=== PATIENT | male | born 1955 | race Caucasian/White ===

== ENCOUNTER 2017-01-14 10:22 | Outpatient (CLI) | payer BC ==
--- NOTE | 2017-01-14 21:31 | RAD ---
LUMBAR SPINE THREE VIEWS: 01/14/17 Comparison is made with a 04/27/09 study. No fracture or areas of bony destruction was seen. Some small anterior osteophytes are seen at sever al levels, each being a little more prominent than they were in 2009. There is some slight increase in facet arthritis at the L4 through S1 levels. The L4-L5 disc space is slightly narrowed today comp ared to before which might be significant. MRI would be useful in determining if there is any neural impingement of stenosis. The SI joints are normal in appearance. IMPRESSION: 1. Mild degenerative changes throughout. Slight advancement of facet arthritis in the lower lum bar level since 2008. 2. Mild disc space narrowing at L4-L5, a new finding since 2008. POS: HOME
== END 2017-01-14 10:23 | disposition home or self-care (01) ==
LOC: BURRAD 10:22
PROVIDERS: ATTEND Family Medicine
DX: M54.42 Lumbago with sciatica, left side (principal); M47.896 Other spondylosis, lumbar region; M48.06 Spinal stenosis, lumbar region
CPT/HCPCS: 72100

== ENCOUNTER 2020-12-19 10:00 | Outpatient (CLI) | payer MEDICARE | END 2020-12-19 10:01 | disposition home or self-care (01) | LOC: BURRAD 10:00 | PROVIDERS: ATTEND Family Medicine | DX: M51.36 Other intervertebral disc degeneration, lumbar region (principal); M47.816 Spondylosis without myelopathy or radiculopathy, lumbar region; K59.00 Constipation, unspecified | CPT/HCPCS: 72100 ==